=== PATIENT | female | born 1985 | race Caucasian/White ===

== ENCOUNTER 2020-04-05 19:44 | Emergency (ER) | payer OTHER ==
[~2020-04-05] VITALS: Ht 154.9 cm; Wt 48.0 kg
[2020-04-05] MEDS ORDERED: SODIUM CHLORIDE FLUSH 10ML SYR IVF ONE (20:00)
[2020-04-05] MEDS ORDERED: SODIUM CHLORIDE 0.9% 1,000ML IVBOLUS ONE (20:00)
[2020-04-05] MEDS ORDERED: SODIUM CHLORIDE 0.9% 1,000 ML IV ONE (20:00)
--- NOTE | 2020-04-05 20:02 | NUR ---
BIB [facility] FOR C/O DIZZINESS, NEAR SYNCOPAL EPIDSODE. PT STATES SHE HAS HX OF SYNCOPAL EPISODE WERE SHE HAS LOC. NO LOC DURING THIS EPISODE. MONITORS CONNECTED. EKG COMPLETE. MD AT BEDSIDE.
[2020-04-05 20:17] LABS: BASOPHILS % (AUTO) 1 % (0-1); EOSINOPHILS % (AUTO) 2 % (1-7); LYMPHOCYTES % (AUTO) 21 % (22-44); MEAN CORPUSCULAR HEMOGLOBIN 29.6 pg (27.0-34.8); MEAN CORPUSCULAR HGB CONC 33.4 g/dL (32.4-35.8); MEAN PLATELET VOLUME 7.8 fL (7.4-10.4); MONOCYTES % (AUTO) 4 % (2-9); NEUTROPHILS % (AUTO) 72 % (42-75); PLATELET COUNT 281 x10^3/uL (130-400); RED BLOOD COUNT 4.03 x10^6/uL (3.82-5.3); RED CELL DISTRIBUTION WIDTH 12.6 % (9.6-15.2)
[2020-04-05 20:20] LABS: MD SCAN
[2020-04-05 20:32] LABS: ALANINE AMINOTRANSFERASE 15 U/L (12-78); ALBUMIN 3.8 g/dL (3.4-5.0); ANION GAP 5 mmol/L (5-15); CALCIUM 8.2 mg/dL (8.5-10.1); CHLORIDE 111 mmol/L (98-107)
[2020-04-05 20:36] LABS: ALKALINE PHOSPHATASE 71 U/L (45-117); BILIRUBIN,TOTAL 0.2 mg/dL (0.2-1.0); CREATININE 0.83 mg/dL (0.55-1.02); TOTAL PROTEIN 6.8 g/dL (6.4-8.2)
[2020-04-05 20:37] LABS: MICROSCOPIC INDICATED
[2020-04-05 21:34] VITALS: BP 106/67
--- NOTE | 2020-04-05 22:12 | NUR ---
REPORT GIVEN TO MIGUEL
== END 2020-04-05 23:12 | disposition home or self-care (01) ==
LOC: ED 20:08
DX: R55 Syncope and collapse (principal); R53.1 Weakness; R42 Dizziness and giddiness; R07.89 Other chest pain; R19.7 Diarrhea, unspecified; R94.31 Abnormal electrocardiogram [ECG] [EKG]
CPT/HCPCS: 36415; 80053; 81001; 84703; 85025; 93005; 96360; 99284; J7030